=== PATIENT | male | born 1985 ===

== ENCOUNTER 2024-08-15 08:29 | Outpatient (CLI) | payer OTHER ==
[2024-08-15 14:31] LABS: ob NEGATIVE (NEGATIVE)
== END 2024-08-15 08:30 | disposition home or self-care (01) ==
LOC: LAB 08:29
DX: N40.0 Benign prostatic hyperplasia without lower urinary tract symptoms (principal); Z12.11 Encounter for screening for malignant neoplasm of colon

== ENCOUNTER 2024-08-15 10:01 | Outpatient (CLI) | payer OTHER | END 2024-08-15 10:11 | disposition home or self-care (01) | LOC: TOM 10:01 | DX: R51.0 Headache with orthostatic component, not elsewhere classified (principal); R73.01 Impaired fasting glucose; E78.2 Mixed hyperlipidemia; E04.1 Nontoxic single thyroid nodule ==